=== PATIENT | female | born 1930 | race Caucasian/White ===

== ENCOUNTER → 2021-08-11 | Outpatient (CLI) | payer MEDICARE, BC ==
[~2021-08-11] MED LIST: AMITRIPTYLINE H10 M1 PO; ASPIRIN 81M81 MG/TA2 PO; CALCIUM + D 5001 TAB PO; CENTRUM SILVER1 TA1 PO; COLACE 100100 MG/CAP PO; COUMADIN4 MG PO; COZAAR 25MG25 MG/TAB PO; DITROPAN 5MG TAB5 MG PO; DOK COLACE100 MG PO; FERROUS SU325 MG/TAB PO; FOLIC ACID 40400 MCG PO; FOSAMAX 70MG TA70 MG PO; GABAPENTIN100 MG PO; IBUPROFEN200 M2 PO; LIPITOR 10MG10 MG PO; OXYBUTYNIN5 MG PO; PREDNISONE20 MG PO; PRILOSEC 20MG20 MG PO; VIT C; VITAMIN C PURE500 MG PO
== END ==
LOC: MHCPAIN 10:44
DX: M70.72 Other bursitis of hip, left hip (principal); M25.551 Pain in right hip
CPT/HCPCS: G0463; J3301